=== PATIENT | female | born 1990 | race African-American/Black ===

== ENCOUNTER 2021-08-04 07:20 | Emergency (ER) | payer MEDICAID ==
[~2021-08-04] VITALS: Ht 162.6 cm; Wt 74.0 kg
[2021-08-04 07:24] VITALS: BP 116/60
[2021-08-04 09:13] LABS: CLARITY URINE CLEAR (CLEAR); COLOR URINE YELLOW (YELLOW); KETONES URINE 4+ (NEGATIVE); LEUKOCYTE ESTERASE URINE NEGATIVE (NEGATIVE); NITRITE URINE NEGATIVE (NEGATIVE); OCCULT BLOOD URINE TRACE (NEGATIVE); PH URINE 5.5 (4.5-8.0); PROTEIN URINE 1+ (NEGATIVE); SPECIFIC GRAVITY URINE 1.037 (1.005-1.030); UROBILINOGEN URINE 0.2 E.U./dL (0.2-1.0)
[2021-08-04] MEDS ORDERED: ACETAMINOPHEN 325MG TABLET PO ONE (09:15)
[2021-08-04] MEDS ORDERED: IBUP-2029 MT (09:56)
[2021-08-04] MEDS ORDERED: ONDA4TAB11 PO (09:56)
[2021-08-04] MEDS ORDERED: ONDANSETRON 4MG ODT PO ONE (10:00)
== END 2021-08-04 10:32 | disposition home or self-care (01) ==
LOC: ER 07:20
DX: R11.0 Nausea (principal); M79.18 Myalgia, other site; Z20.822 Contact with and (suspected) exposure to COVID-19
CPT/HCPCS: 81003; 81025; 99283; C9803; Q0162; U0003; U0005